=== PATIENT | female | born 1985 | race Caucasian/White ===

== ENCOUNTER 2022-08-29 12:16 | Emergency (ER) | payer BC, OTHER ==
[2022-08-29] MEDS: Aspirin 81 MG Tab.Chew PO ONE (12:36)
[2022-08-29] MEDS: Morphine 2 MG/ML SYRINGE IVPUSH ONE ×3 (12:39→13:23)
[2022-08-29] MEDS: Ondansetron 4 MG/2 ML SDV IVPUSH ONE (12:49)
[2022-08-29] MEDS: Alum Hydrox/Mag Hydrox/Simeth 30 ML, Lidocaine 2% 15 ML PO ONE ×2 (12:52)
[2022-08-29] MEDS: Sodium Chloride 0.9% 1,000 ML IV ONE (13:24)
[2022-08-29] MEDS: HYDROmorphone 1 MG/ML Syringe IVPUSH ONE (14:51)
[2022-08-29 15:32] VITALS: BP 139/72; PULSE 71
== END 2022-08-29 15:40 | disposition home or self-care (01) ==
LOC: KA.ED 12:16
DX: K21.9 Gastro-esophageal reflux disease without esophagitis (principal); M19.90 Unspecified osteoarthritis, unspecified site; E03.9 Hypothyroidism, unspecified; E66.9 Obesity, unspecified; Z68.42 Body mass index [BMI] 45.0-49.9, adult; Z79.899 Other long term (current) drug therapy
CPT/HCPCS: 36415; 71045; 80053; 81001; 81003; 81025; 82550; 83690; 84484; 85025; 93010; 96361; 96374; 96375; 96376; 99284; 99285-25; A9270-GY; J1170; J2270; J2405; J7030